=== PATIENT | male | born 1960 | race African-American/Black ===

== ENCOUNTER 2017-04-12 05:28 | Inpatient (IN) ==
[2017-04-07 10:19] LABS: Basophils % 0.6 % (0.0-0.8); Eosinophils # 0.1 10*3/uL (0.0-0.87); Eosinophils % 1.9 % (0.00-10.9); Hematocrit 44.1 VOL% (42.0-52.0); Hemoglobin 14.5 GM/DL (14.0-18.0); Immature Granulocytes % 0.2 %; Immature Granulocytes Absolute 0.01 #; Lymphocytes # 1.6 10*3/uL (1.4-4.0); Lymphocytes % 31.9 % (21.2-54.2); Mean Corpuscular HGB Conc 32.9 GM/DL (32-36); Mean Corpuscular Hemoglobin 27 PG (27-34); Mean Corpuscular Volume 81.2 FL (87-102); Mean Platelet Volume 10.3 FL (9.6-12.0); Monocytes # 0.6 10*3/uL (0.11-0.8); Monocytes % 11.9 % (1.7-12.7); Neutrophils # 2.8 10*3/uL (1.4-7.4); Neutrophils % 53.5 % (38.7-73.9); Platelet Count 256 T/CUMM (130-400); Red Blood Count 5.43 MC/CUMM (3.8-5.5); Red Cell Distribution Width 14.6 % (9.3-17.3); White Blood Count 5.1 T/CUMM (4-12)
--- NOTE | 2017-04-07 10:32 | EKG Report ---
Stationary ECG Study [facility] Test Date: 04/07/2017 10:33:39 AM Pat Name: MAXINE HAWKINS Department: Room: Gender: M Traffic I Manager: JESU 04/12/17 : 1960 Requested by: Heber Cunha Order Number: [id number] Reading MD: BISI PALACIOS Intervals [place] Rate: 60 P: 75 MD: 167 QRS: 12 QRSD: 98 T: 57 QT: 392 QTc: 392 Interpretive Statements SINUS RHYTHM INCOMPLETE RIGHT BUNDLE BRANCH BLOCK Electronically Signed On 04-08-17 15:17:50 CDT by BISI PALACIOS [email or web address]
[2017-04-07 10:37] LABS: PT Patient Result 10.5 SECS
[2017-04-07 10:44] LABS: Partial Thromboplastin Time 42.8 SECS (0-40)
[2017-04-07 10:51] LABS: Calcium 9.3 MG/DL (8.5-10.1); Magnesium 2.2 MG/DL (1.8-2.4); Osmolality,Calculated 275.4 MOS/KG (273-304); Potassium 4.4 MMOL/L (3.5-5.1)
[2017-04-07 10:52] LABS: Apearance,Urine CLEAR (Clear); Bilirubin,Urine Negative (Negative); Blood, Urine Negative (Negative); Glucose,Urine (UA) Negative (Negative); Ketones,Urine Negative (Negative); Mucus,Urine Occasional /LPF (Occasional); Nitrite,Urine Negative (Negative); Protein,Urine Negative; RBC,Urine <1 /HPF (0-4); Urine Color Yellow (Yellow); Urine Specific Gravity 1.012 (1.001-1.035); WBC,Urine <1 /HPF (0-6)
--- NOTE | 2017-04-07 13:30 | XRay Report ---
XR chest 2V Date: 04/07/2017 9:59 AM History: Respiratory preoperative evaluation Comparison: 03/24/2017 Technique: PA and lateral chest Findings: The heart remains normal in size. Stable right apical mass. The finding abuts the pleural surface of the right lung apex with adjacent atelectasis. Stable mediastinum and osseous structures. Impression: Stable right apical mass. No significant change in the appearance of the chest. PROCEDURE INTERPRETED AT [facility] DEPARTMENT OF RADIOLOGY Final Report Signed by: Dr. Eliana Almaraz
[~2017-04-12 05:28] MED LIST: SODIUM CHLORIDE 0.9% 250 ML IV PRN
[2017-04-12] MEDS ORDERED: BUPIVACAINE LIPOSOMAL 20 ML/266 MG VIAL INFILTRAT ONE (06:00)
[2017-04-12] MEDS ORDERED: CEFUROXIME INJ 1,500 MG in SODIUM CHLORIDE 0.9% 100 ML IV ONE (06:00)
[2017-04-12] MEDS ORDERED: ACETAMINOPHEN INJ 1,000 MG in PREMIX 1 EACH IV ONE (06:00)
[2017-04-12] MEDS ORDERED: BUPIVACAINE LIPOSOMAL 20 ML/266 MG VIAL ONE (06:33)
[2017-04-12] MEDS ORDERED: SODIUM CHLORIDE 0.9% 100 ML IV ONE (06:37)
[2017-04-12] MEDS ORDERED: CEFUROXIME 1,500 MG VIAL ONE (06:37)
--- NOTE | 2017-04-12 06:57 | History and Physical Update ---
History and Physical Update - History and Physical H&P was reviewed, the patient examined and there: are no changes in the patients condition since last H&P was completed. - Dictation Physical: refer to scanned H&P
[2017-04-12] MEDS ORDERED: PROPOFOL 200 MG/20 ML VIAL IV ONE (06:58)
[2017-04-12] MEDS ORDERED: NEOSTIGMINE 10 MG/10 ML VIAL ONE (06:58)
[2017-04-12] MEDS ORDERED: PHENYLEPHRINE 50 MG/5 ML VIAL ONE (06:58)
[2017-04-12] MEDS ORDERED: PHENYLEPHRINE 1 MG/10 ML SYRINGE IV ONE (06:58)
[2017-04-12] MEDS ORDERED: LIDOCAINE 2% 5 ML VIAL ONE (06:58)
[2017-04-12] MEDS ORDERED: ROCURONIUM 100 MG/10 ML VIAL IV ONE (06:58)
[2017-04-12] MEDS ORDERED: GLYCOPYRROLATE 0.4 MG/2 ML VIAL ONE (06:58)
[2017-04-12] MEDS ORDERED: ONDANSETRON 4 MG/2 ML VIAL ONE (06:58)
[2017-04-12] MEDS ORDERED: LACTATED RINGERS 1,000 ML IV SCH (07:00)
[2017-04-12 08:31] LABS: Apearance,Urine Slightly Hazy (Clear); Bacteria,Urine Occasional /HPF (Few); Bilirubin,Urine Negative (Negative); Blood, Urine Negative (Negative); Glucose,Urine (UA) Negative (Negative); Ketones,Urine Negative (Negative); Mucus,Urine Many /LPF (Occasional); Nitrite,Urine Negative (Negative); Protein,Urine Negative; RBC,Urine 1 /HPF (0-4); Urine Color Yellow (Yellow); Urine Specific Gravity 1.023 (1.001-1.035); Urine Urobilinogen < 2.0 EU/DL (0.2-1.0); WBC,Urine 2 /HPF (0-6)
[2017-04-12] MEDS ORDERED: TISSUE ADHESIVE 1 EACH APPLICATOR TOP ONE (10:08)
[2017-04-12] MEDS ORDERED: HYDROmorphone 2 MG/1 ML VIAL ONE (10:32)
[2017-04-12] MEDS: HYDROmorphone 2 MG/1 ML VIAL IV PRN ×3 (10:35→14:46)
--- NOTE | 2017-04-12 10:36 | Operative Note ---
Date of procedure: 04/12/17 Pre-op diagnosis: Right upper lobe lung cancer Post-op diagnosis: same Procedure: Procedure: 1. Bronchoscopy 3. Right video-assisted thoracoscopy 4. Injection of liposomal bupivacaine with intercostal nerve blocks levels 2, 3 , 4, 5, 6, 7, 8 5. Right upper lobectomy 6. Complete mediastinal lymph node dissection Details of the procedure: The patient was brought to the OR placed supine on the OR table and general endotracheal anesthesia was induced without without any problems. Antibiotics were given. Time out was performed The neck and chest were prepped and draped in the usual sterile fashion. At this point I decided to proceed with right video-assisted thoracoscopy to do the right upper lobectomy and mediastinal lymph node. The patient was turned and the chest was prepared and draped in sterile fashion. An incision was made over the eighth rib and space was entered bluntly. Survey of the chest didn't show any obvious lesions other than the right upper lobe. The inferior pulmonary ligament was taken down and dissected the hilum all around the lung. The right superior pulmonary vein was identified and encircled with silk stitch. Was created and I used a white load stapler to resect the pulmonary vein. Care was taken to preserve the right middle lobe vein and the right lower lobe vein. After that we proceeded with identifying the truncu anterior artery. Dissection was carried around the artery. Of note there was severely adhesed large and solid lymph nodes likely related to lymphoma After circling the artery successfully I dissected it using white load. I after that identified the interlobar artery and finished the fissure using Pribble Carly annie. This was carried all the way down. After that the bronchus was identified and it was transected using load stapler. The lobe was then handed over after complete resection and then turned my attention to completion of lymph node dissection. Identified level VII lymph node as well as level IV lymph nodes. There was collected and the would be sent for permanent pathology. The patient tolerated the procedure well hemostasis was achieved and 2 chest tubes were inserted without any problems. The right middle and lower lobes were inflated successfully without any problems. I recommended a leak. The patient was extubated and moved to PACU in good condition. Anesthesia: GETA Surgeon / Physician: Heber Cunha Estimated blood loss: other (200) Specimens: other (Right upper lobe, level 11, level 9, level 4R lymph nodes) Condition: stable Disposition: PACU Results - Labs CBC & BMP: 04/07/17 10:03 04/07/17 10:10 Discharge Plan - Discharge Medications No Action Aspirin EC Tab 81 mg PO DAILY - Follow Up or Referral - Forms/Instructions
[2017-04-12] MEDS ORDERED: ONDANSETRON 4 MG/2 ML VIAL IV PRN (10:44)
[2017-04-12] MEDS ORDERED: SEVOFLURANE 1 UNIT/15 MINUTE INH ONE (10:45)
[2017-04-12] MEDS ORDERED: MIDAZOLAM 2 MG/2 ML VIAL ONE (10:45)
[2017-04-12] MEDS ORDERED: SODIUM CHLORIDE 0.9% 1,000 ML IV ONE (10:46)
[2017-04-12] MEDS ORDERED: fentaNYL 100 MCG/2 ML VIAL ONE (10:46)
[2017-04-12] MEDS ORDERED: ePHEDrine 50 MG/ML AMP ONE (10:46)
[2017-04-12] MEDS ORDERED: SODIUM CHLORIDE 0.9% 250 ML IV ONE (10:46)
[2017-04-12] MEDS ORDERED: SODIUM CHLORIDE 0.9% 1,000 ML IV SCH (11:00)
--- NOTE | 2017-04-12 11:19 | XRay Report ---
Exam: XR chest 1V portable Date: 04/12/2017 10:24 AM Indication: Postop thoracotomy chest tube Comparison: 04/07/2017 Technical: AP Findings: A right IJ catheter is present. Thoracotomy tube is present in the right apex and one is also located in the medial apex. Surgical clips present in the right hilus. Less than 1% pneumothorax present. ASVD is present. Heart is normal in size. Impression: 1. Interval right-sided thoracotomy with 2 thoracotomy tubes present with a right IJ catheter placed 2. Minimal apical pleural thickening without obvious infiltrates or effusions seen 3. Less than 1% pneumothorax on the right PROCEDURE INTERPRETED AT [facility] DEPARTMENT OF RADIOLOGY Final Report Signed by: Dr. Juaquin Novak
[2017-04-12 11:34] LABS: Basophils % 0.2 % (0.0-0.8); Eosinophils # 0.1 10*3/uL (0.0-0.87); Eosinophils % 0.6 % (0.00-10.9); Hemoglobin 14.3 GM/DL (14.0-18.0); Immature Granulocytes % 0.3 %; Immature Granulocytes Absolute 0.03 #; Lymphocytes # 0.9 10*3/uL (1.4-4.0); Lymphocytes % 10.7 % (21.2-54.2); Mean Corpuscular HGB Conc 32.5 GM/DL (32-36); Mean Corpuscular Hemoglobin 26 PG (27-34); Mean Corpuscular Volume 81.3 FL (87-102); Mean Platelet Volume 10.3 FL (9.6-12.0); Monocytes # 0.4 10*3/uL (0.11-0.8); Monocytes % 4.4 % (1.7-12.7); Neutrophils # 7.4 10*3/uL (1.4-7.4); Neutrophils % 83.8 % (38.7-73.9); Platelet Count 250 T/CUMM (130-400); Red Blood Count 5.41 MC/CUMM (3.8-5.5); Red Cell Distribution Width 14.6 % (9.3-17.3); White Blood Count 8.8 T/CUMM (4-12)
[2017-04-12 12:06] LABS: Calcium 8.2 MG/DL (8.5-10.1); Osmolality,Calculated 281.3 MOS/KG (273-304)
--- NOTE | 2017-04-12 12:34 | Anesthesia Post-Op ---
Anesthesia Post OP - Post Ansesthetic Evaluation Patient seen in post op: Yes Resp: within normal limits CV: within normal limits Mental: within normal limits Temp: within normal limits [id number]: within normal limits Nausea and Vomiting: within normal limits Pain: within normal limits
[2017-04-12] MEDS: KETOROLAC 15 MG/1 ML VIAL IV SCH ×2 (13:45→20:25)
[2017-04-12] MEDS: ONDANSETRON 4 MG/2 ML VIAL IV PRN ×2 (14:55→18:03)
[2017-04-12] MEDS: GABAPENTIN 100 MG CAPSULE PO SCH ×2 (15:07→20:28)
[2017-04-12] MEDS: POTASSIUM CHLORIDE INJ 10 MEQ in SODIUM CHLORIDE 0.45% 1,000 ML IV SCH ×2 (15:08→22:14)
[2017-04-12] MEDS: ACETAMINOPHEN INJ 1,000 MG in PREMIX 1 EACH IV SCH ×2 (17:25→23:15)
[2017-04-12] MEDS ORDERED: METOPROLOL TARTRATE 5 MG/5 ML VIAL IV ONE (17:54)
[2017-04-12] MEDS: CEFUROXIME INJ 1,500 MG in SODIUM CHLORIDE 0.9% 100 ML IV SCH (18:03)
[2017-04-12] MEDS: METOPROLOL TARTRATE 25 MG TABLET PO SCH (20:27)
[2017-04-13] MEDS: KETOROLAC 15 MG/1 ML VIAL IV SCH ×4 (01:03→21:27)
[2017-04-13] MEDS: ACETAMINOPHEN 500 MG TABLET PO SCH ×3 (04:27→16:49)
[2017-04-13] MEDS ORDERED: MORPHINE 10 MG/1 ML VIAL IV ONE (04:50)
[2017-04-13 05:25] LABS: Basophils % 0.1 % (0.0-0.8); Eosinophils % 0.3 % (0.00-10.9); Hematocrit 41.7 VOL% (42.0-52.0); Hemoglobin 13.8 GM/DL (14.0-18.0); Immature Granulocytes % 0.3 %; Immature Granulocytes Absolute 0.02 #; Lymphocytes # 1.4 10*3/uL (1.4-4.0); Lymphocytes % 19.7 % (21.2-54.2); Mean Corpuscular HGB Conc 33.1 GM/DL (32-36); Mean Corpuscular Hemoglobin 27 PG (27-34); Mean Corpuscular Volume 81.3 FL (87-102); Mean Platelet Volume 10.5 FL (9.6-12.0); Monocytes # 0.6 10*3/uL (0.11-0.8); Monocytes % 7.9 % (1.7-12.7); Neutrophils # 5.1 10*3/uL (1.4-7.4); Neutrophils % 71.7 % (38.7-73.9); Platelet Count 245 T/CUMM (130-400); Red Blood Count 5.13 MC/CUMM (3.8-5.5); Red Cell Distribution Width 14.7 % (9.3-17.3); White Blood Count 7.1 T/CUMM (4-12)
[2017-04-13 06:13] LABS: Calcium 8.5 MG/DL (8.5-10.1); Osmolality,Calculated 276.4 MOS/KG (273-304); Potassium 4.3 MMOL/L (3.5-5.1)
[2017-04-13] MEDS: CEFUROXIME INJ 1,500 MG in SODIUM CHLORIDE 0.9% 100 ML IV SCH (06:53)
--- NOTE | 2017-04-13 07:08 | XRay Report ---
Exam: XR chest 2V Date: 04/13/2017 4:00 AM Indication: Right upper lobe lobectomy Comparison: 04/12/2017 Technical: PA lateral Findings: 2 thoracotomy tubes are present direct towards apex and one in the medial upper chest. Mild prominence the cardiac silhouette. External cardiac leads are present. A right IJ catheter is in the right atrium superior vena cava junction. Component of air-fluid level is present in the right apex with small less than 5% apical pneumothorax Impression: 1. Stable position of the thoracotomy tubes and right IJ catheter 2. Small right apical pneumothorax less than 5% with small amount of fluid also present. PROCEDURE INTERPRETED AT [facility] DEPARTMENT OF RADIOLOGY Final Report Signed by: Dr. Juaquin Novak
--- NOTE | 2017-04-13 07:34 | Cardiothoracic Progress Note ---
Assessment and Plan - Time spent with patient Time spent with patient: Greater than 30 minutes (1) Lesion of right lung Problem details: PET +ve, suspicious for malignancy Status: Acute Assessment and plan: 56-year-old male one day status post VATS right upper lobectomy with mediastinal lymph node dissection for right upper lobe lung cancer. The patient did very well overnight. He is afebrile and vital signs are stable. DC A-line. Ambulate. Transfer to telemetry. Advance diet. Will put the chest tube to waterseal today. Current Visit: No Exam (Progress Note) - Constitutional Vitals: Period Temp Pulse Resp BP Sys/Joe Pulse Ox Last 24 Hr 96.8 F-98.2 F 66-97 6-21 110-181/56-95 95-100 Result/EKG - Labs CBC & BMP: 04/13/17 04:35 04/13/17 04:33 Labs: Laboratory Results - last 24 hr 04/12/17 04/12/17 04/12/17 06:29 08:21 11:10 WBC 8.8 RBC 5.41 Hgb 14.3 Hct 44.0 MCV 81.3 L MCH 26 L MCHC 32.5 RDW 14.6 Plt Count 250 MPV 10.3 Neut % (Auto) 83.8 H Lymph % (Auto) 10.7 L [place] % (Auto) 4.4 Eos % (Auto) 0.6 Baso % (Auto) 0.2 Neut # (Auto) 7.4 Lymph # (Auto) 0.9 L [place] # (Auto) 0.4 Eos # (Auto) 0.1 Baso # (Auto) 0.0 Immature Gran % 0.3 Nucleated RBC % 0.0 Immature Gran # 0.03 Nucleated RBCs # 0.00 Immature Plt Fraction 0.0 Sodium Potassium Chloride Carbon Dioxide Anion Gap BUN Creatinine GFR Calculation BUN/Creatinine Ratio Glucose Calculated Osmolality Calcium Urine Color Yellow Urine Appearance Slightly hazy Urine pH 5.0 Ur Specific [place] 1.023 Urine Protein Negative Urine Glucose (UA) Negative Urine Ketones Negative Urine Blood Negative Urine Nitrate Negative Urine Bilirubin Negative Urine Urobilinogen < 2.0 H Urine Leukocytes Negative Urine RBC 1 Urine WBC 2 Urine Bacteria Occasional Urine Mucus Many Ur Culture Indicated? Not indicated Crossmatch See Detail 04/12/17 04/13/17 04/13/17 11:10 04:33 04:35 WBC 7.1 RBC 5.13 Hgb 13.8 L Hct 41.7 L MCV 81.3 L MCH 27 MCHC 33.1 RDW 14.7 Plt Count 245 MPV 10.5 Neut % (Auto) 71.7 Lymph % (Auto) 19.7 L [place] % (Auto) 7.9 Eos % (Auto) 0.3 Baso % (Auto) 0.1 Neut # (Auto) 5.1 Lymph # (Auto) 1.4 [place] # (Auto) 0.6 Eos # (Auto) 0.0 Baso # (Auto) 0.0 Immature Gran % 0.3 Nucleated RBC % 0.0 Immature Gran # 0.02 Nucleated RBCs # 0.00 Immature Plt Fraction 0.0 Sodium 141 140 Potassium 4.0 4.3 Chloride 108 H 104 Carbon Dioxide 27 30 Anion Gap 10.0 10.3 BUN 11 7 Creatinine 0.80 0.70 GFR Calculation 118 125 BUN/Creatinine Ratio 13.00 10.00 Glucose 142 H 95 Calculated Osmolality 281.3 276.4 Calcium 8.2 L 8.5 Urine Color Urine Appearance Urine pH Ur Specific [place] Urine Protein Urine Glucose (UA) Urine Ketones Urine Blood Urine Nitrate Urine Bilirubin Urine Urobilinogen Urine Leukocytes Urine RBC Urine WBC Urine Bacteria Urine Mucus Ur Culture Indicated? Crossmatch Quality Measures - VTE Contraindication to Pharmacological VTE Prophylaxis: Active Bleeding
[2017-04-13] MEDS: GABAPENTIN 100 MG CAPSULE PO SCH ×3 (08:45→21:29)
[2017-04-13] MEDS: POTASSIUM CHLORIDE INJ 10 MEQ in SODIUM CHLORIDE 0.45% 1,000 ML IV SCH (08:45)
[2017-04-13] MEDS: METOPROLOL TARTRATE 25 MG TABLET PO SCH ×2 (08:46→21:28)
[2017-04-13] MEDS: PANTOPRAZOLE 40 MG VIAL IV SCH (08:48)
[2017-04-13] MEDS ORDERED: traMADol 50 MG TABLET PO PRN (10:24)
--- NOTE | 2017-04-13 18:17 | Pathology Report from [facility] ---
[facility] # : [id number] PATIENT NAME : Palmer Hawkins ORDERING DR : Heber Cunha MD CLINICAL HX: Pulmonary nodule - Pulmonary cancer POST-OP DX: Same SPECIMEN INFO: #1 Lymph node 9R #2 Lymph node 11R #3 Lymph node 4R #4 Right upper lobe GROSS DESCRIPTION: #1 LYMPH NODE 9R, PALMER HAWKINS received fresh is a 0.5 x 0.4 cm mccallum-black lymph node submitted in cassette #1.#2 LYMPH NODE 11R, PALMER HAWKINS received fresh is 1.3 x 0.8 cm of mccallum-black tissue submitted in cassette #2.#3 LYMPH NODE 4R, PALMER HAWKINS received fresh is a 1.2 x 0.8 cm aggregate of red-santos tissue submitted in #3.#4 R UPPER LOBE, PALMER HAWKINS received in formalin is a 14.5 x 8.0 x 3.0 cm right upper lung lobe. The serosa is maroon- pink with anthracotic change. Multiple anthracotic nodes are present at the hilum. Sectioning reveals a 2.8 x 2.8 cm tumor mass in the lung which grossly extends to the pleural surface and comes to within 5.5 cm of the bronchial margin. Parenchyma is spongy to hemorrhagic. No other masses. 4A bronchial and vascular margins, 4B lymph nodes, 4C and 4D tumor, and pleural surface. DIAGNOSIS FOR PALMER HAWKINS: #1-#4 LUNG, RIGHT UPPER LOBE, LOBECTOMY (Intact, 14.5 x 8.0 x 3.0 cm) W/ MEDIASTINAL NODES: TUMOR TYPE: Non mucinous adenocarcinoma. HISTOLOGIC GRADE: Poorly Differentiated. TUMOR SIZE: 2.8 x 2.8 cm. TUMOR SITE: RUL. MARGINS: All margins uninvolved with carcinoma with nearest (bronchial) margin = 55 mm. FOCALITY: Unifocal. VISCERAL PLEURAL INVASION: Present (PL2). LYMPHOVASCULAR INVASION: Not present. TUMOR ASSOCIATED ATELECTASIS OR OBSTRUCTIVE PNEUMONITIS: Not present. DIRECT INVASION OF ADJACENT STRUCTURES: No adjacent structures present. TREATMENT EFFECT: No known presurgical therapy. LYMPH NODES: Number examined = 5 (#1 9R , #2 11R, #4 12R x3); Number positive = 0 (0/5). ADDITIONAL FINDINGS: #3 4R = No lymph node present. AJCC (2018) PATHOLOGIC STAGE IB (pT2a(PL2) pN0) COLLECTED DATE: 04/12/2017 [facility] REPORT DATE: 04/13/2017 ELECTRONICALLY SIGNED BY: Luis Beltre M.D. 04/13/2017 - 11:54:11 [facility]TDD
[2017-04-13] MEDS: CELECOXIB 200 MG CAPSULE PO SCH (21:28)
[2017-04-14] MEDS: KETOROLAC 15 MG/1 ML VIAL IV SCH ×2 (03:48→08:46)
[2017-04-14] MEDS: ACETAMINOPHEN 500 MG TABLET PO SCH ×5 (03:48→21:34)
[2017-04-14 05:47] LABS: Basophils % 0.2 % (0.0-0.8); Eosinophils # 0.1 10*3/uL (0.0-0.87); Eosinophils % 1.1 % (0.00-10.9); Hematocrit 40.4 VOL% (42.0-52.0); Hemoglobin 13.1 GM/DL (14.0-18.0); Immature Granulocytes % 0.4 %; Immature Granulocytes Absolute 0.03 #; Lymphocytes % 11.6 % (21.2-54.2); Mean Corpuscular HGB Conc 32.4 GM/DL (32-36); Mean Corpuscular Hemoglobin 27 PG (27-34); Mean Corpuscular Volume 81.9 FL (87-102); Mean Platelet Volume 10.4 FL (9.6-12.0); Monocytes # 0.5 10*3/uL (0.11-0.8); Monocytes % 6.1 % (1.7-12.7); Neutrophils # 6.6 10*3/uL (1.4-7.4); Neutrophils % 80.6 % (38.7-73.9); Platelet Count 218 T/CUMM (130-400); Red Blood Count 4.93 MC/CUMM (3.8-5.5); Red Cell Distribution Width 14.7 % (9.3-17.3); White Blood Count 8.2 T/CUMM (4-12)
[2017-04-14 06:17] LABS: Calcium 8.6 MG/DL (8.5-10.1); Osmolality,Calculated 280.3 MOS/KG (273-304); Potassium 4.2 MMOL/L (3.5-5.1)
[2017-04-14] MEDS: CELECOXIB 200 MG CAPSULE PO SCH ×2 (08:48→21:34)
[2017-04-14] MEDS: GABAPENTIN 100 MG CAPSULE PO SCH ×3 (08:48→21:35)
[2017-04-14] MEDS: PANTOPRAZOLE 40 MG VIAL IV SCH (08:48)
--- NOTE | 2017-04-14 08:48 | XRay Report ---
Portable chest April 14, 2017 at 0727 hours Indication: Right upper lobectomy, difficulty breathing Comparison images from previous day at 0542 hours Findings: Tubes and lines are unchanged. Right lung remains expanded along the chest wall. Osseous structures are unremarkable. Cardiomediastinal contours are stable. Impression: Uncomplicated postoperative chest PROCEDURE INTERPRETED AT [facility] DEPARTMENT OF RADIOLOGY Final Report Signed by: Farzad Del Angel
[2017-04-14] MEDS: METOPROLOL TARTRATE 25 MG TABLET PO SCH ×2 (08:49→21:35)
--- NOTE | 2017-04-14 10:36 | Cardiothoracic Progress Note ---
Assessment and Plan (1) Lesion of right lung Problem details: PET +ve, suspicious for malignancy Status: Acute Assessment and plan: 56-year-old male 2 days status post VATS right upper lobectomy with mediastinal lymph node dissection for right upper lobe lung cancer. The patient did very well overnight. He is afebrile and vital signs are stable. Ambulate. Will put the chest tube to waterseal today. Likely discharge tomorrow. Current Visit: No Exam (Progress Note) - Constitutional Vitals: Period Temp Pulse Resp BP Sys/Joe Pulse Ox Last 24 Hr 97.4 F-98.5 F 69-85 18-20 135-150/70-81 94-100 Result/EKG - Labs CBC & BMP: 04/14/17 05:12 04/14/17 05:12 Labs: Laboratory Results - last 24 hr 04/14/17 04/14/17 05:12 05:12 WBC 8.2 RBC 4.93 Hgb 13.1 L Hct 40.4 L MCV 81.9 L MCH 27 MCHC 32.4 RDW 14.7 Plt Count 218 MPV 10.4 Neut % (Auto) 80.6 H Lymph % (Auto) 11.6 L [place] % (Auto) 6.1 Eos % (Auto) 1.1 Baso % (Auto) 0.2 Neut # (Auto) 6.6 Lymph # (Auto) 1.0 L [place] # (Auto) 0.5 Eos # (Auto) 0.1 Baso # (Auto) 0.0 Immature Gran % 0.4 Nucleated RBC % 0.0 Immature Gran # 0.03 Nucleated RBCs # 0.00 Immature Plt Fraction 0.0 Sodium 141 Potassium 4.2 Chloride 106 Carbon Dioxide 33 H Anion Gap 6.2 BUN 9 Creatinine 0.90 GFR Calculation 112 BUN/Creatinine Ratio 10.00 Glucose 116 H Calculated Osmolality 280.3 Calcium 8.6 Quality Measures - VTE Contraindication to Pharmacological VTE Prophylaxis: Active Bleeding
[2017-04-15] MEDS: ACETAMINOPHEN 500 MG TABLET PO SCH ×2 (04:44→10:12)
[2017-04-15 05:42] LABS: Basophils % 0.4 % (0.0-0.8); Eosinophils # 0.1 10*3/uL (0.0-0.87); Eosinophils % 2.3 % (0.00-10.9); Hematocrit 39.8 VOL% (42.0-52.0); Immature Granulocytes % 0.4 %; Immature Granulocytes Absolute 0.02 #; Lymphocytes # 1.1 10*3/uL (1.4-4.0); Lymphocytes % 18.5 % (21.2-54.2); Mean Corpuscular HGB Conc 32.7 GM/DL (32-36); Mean Corpuscular Hemoglobin 27 PG (27-34); Mean Corpuscular Volume 81.1 FL (87-102); Mean Platelet Volume 10.8 FL (9.6-12.0); Monocytes # 0.5 10*3/uL (0.11-0.8); Neutrophils # 3.9 10*3/uL (1.4-7.4); Neutrophils % 69.4 % (38.7-73.9); Platelet Count 232 T/CUMM (130-400); Red Blood Count 4.91 MC/CUMM (3.8-5.5); Red Cell Distribution Width 14.6 % (9.3-17.3); White Blood Count 5.7 T/CUMM (4-12)
[2017-04-15 06:13] LABS: Osmolality,Calculated 281.1 MOS/KG (273-304); Potassium 4.1 MMOL/L (3.5-5.1)
--- NOTE | 2017-04-15 07:59 | XRay Report ---
2 view chest 04/15/2017 4:00 AM Indication: Shortness of breath postop right upper lobectomy Comparison: Previous day at 0727 hours Findings: Cardiomediastinal contours are stable. Tubes and lines are unchanged and remain in satisfactory position. No significant change in appearance of the small right apical pneumothorax from previous study. No acute osseous abnormalities. Visualized upper abdomen demonstrates no acute pathology. Impression: Stable postoperative chest with no change in the small right apical pneumothorax PROCEDURE INTERPRETED AT [facility] DEPARTMENT OF RADIOLOGY Final Report Signed by: Farzad Del Angel
[2017-04-15] MEDS: CELECOXIB 200 MG CAPSULE PO SCH (08:59)
[2017-04-15] MEDS: METOPROLOL TARTRATE 25 MG TABLET PO SCH (08:59)
[2017-04-15] MEDS: GABAPENTIN 100 MG CAPSULE PO SCH (08:59)
[2017-04-15] MEDS: PANTOPRAZOLE 40 MG VIAL IV SCH (09:00)
--- NOTE | 2017-04-15 09:32 | Discharge Summary ---
Hospital Course - Hospital Course Hospital Course: The patient came into the preop area was evaluated and was not to be fit for surgery. The patient was then taken to the OR on the right VATS upper lobectomy and mediastinal lymph node dissection was performed without any problems. The patient was admitted to the ICU for observation. He did very well. Pain was well-controlled. He had no air leak. Postoperative day 1 he was transferred to telemetry. He is ambulating well. He was having bowel movements. Postoperative day 2 chest tubes were put to waterseal. There was no air leak. Postoperative day 3 chest tubes were removed. The patient was tolerating his diet. He was doing very well. He was ready for discharge. Diagnosis - Discharge Diagnosis (1) Lesion of right lung Status: Acute Discharge Plan - Discharge Data Disposition: Disch To Home/Self Care Condition at Discharge: Stable Discharge Diet: advance to your usual diet Activity: resume usual activities as tolerated Weight Bearing at Discharge: full weight bearing, weight bear as tolerated Contact your physician if you experience:: fever over 101, Difficulty voiding, Redness or swelling, Nausea/Vomiting, Shortness of breath - Discharge Medications [place] Cap/Tab [Neurontin Cap/Tab] 100 mg PO TID #60 capsule Acetaminophen Tab [Tylenol Tab] 1,000 mg PO Q6H #60 tablet Celecoxib [Celebrex] 200 mg PO BID #60 capsule Metoprolol Tartrate Tab [Lopressor Tab] 12.5 mg PO BID #30 tablet traMADol TAB [Ultram] 50 mg PO Q6H PRN #60 tablet PRN Reason: Pain Mild (1-3) Continue Aspirin EC Tab 81 mg PO DAILY - Follow Up or Referral - Forms/Instructions Exam - Constitutional Vitals: Period Temp Pulse Resp BP Sys/Joe Pulse Ox Last 24 Hr 97.0 F-98.4 F 68-96 16-20 138-187/83-97 95-100 Discharge Results Procedures and tests throughout hospitalization: Pending Orders 04/12/17 06:29 Fresh Frozen Plasma Routine Single Donor Platelets Routine Type and Screen Routine Labs on day of discharge: Labs from last 24 hours 04/15/17 04/15/17 04:36 04:36 WBC 5.7 D RBC 4.91 Hgb 13.0 L Hct 39.8 L MCV 81.1 L MCH 27 MCHC 32.7 RDW 14.6 Plt Count 232 MPV 10.8 Neut % (Auto) 69.4 Lymph % (Auto) 18.5 L [place] % (Auto) 9.0 Eos % (Auto) 2.3 Baso % (Auto) 0.4 Neut # (Auto) 3.9 Lymph # (Auto) 1.1 L [place] # (Auto) 0.5 Eos # (Auto) 0.1 Baso # (Auto) 0.0 Immature Gran % 0.4 Nucleated RBC % 0.0 Immature Gran # 0.02 Nucleated RBCs # 0.00 Immature Plt Fraction 0.0 Sodium 142 Potassium 4.1 Chloride 106 Carbon Dioxide 31 Anion Gap 9.1 BUN 10 Creatinine 0.70 GFR Calculation 124 BUN/Creatinine Ratio 14.00 Glucose 92 Calculated Osmolality 281.1 Calcium 9.0 DS: Provider Date of admission: 04/12/17 05:28 Primary care physician: . No PCP Attending physician on admission: Heber Cunha Discharging clinician: Heber Cunha Expected date of discharge: 04/15/17
[2017-04-15 12:05] VITALS: BP 163/90
[2017-04-15] MEDS ORDERED: PNEUMOCOCCAL VACCINE (23 VALENT) 0.5 ML VIAL IM ONE (12:30)
--- NOTE | 2017-04-15 12:47 | XRay Report ---
Exam: XR chest 2V Date: 04/15/2017 11:30 AM Indication: Shortness of breath removal of thoracotomy tube Comparison: 04/15/2017 7:23 AM Technical:PA lateral Findings: Right IJ catheter is present with the distal tip in the superior vena cava the 2 thoracotomy tubes have been removed.. Mild interstitial thickening present in the perihilar regions with a surgical clip present on the right. No obvious pneumothorax clearly demonstrated. The exam reveals external cardiac leads present. Impression: 1. Interval removal of the 2 right-sided thoracotomy tubes with no obvious pneumothorax 2. Stable position right IJ catheter 3. Status post surgical changes in some interstitial thickening and scarring in the perihilar regions PROCEDURE INTERPRETED AT [facility] DEPARTMENT OF RADIOLOGY Final Report Signed by: Dr. Juaquin Novak
[2017-04-15] MEDS ORDERED: INFLUENZA VIRUS VACCINE 0.5 ML SYRINGE IM ONE (13:00)
== END 2017-04-15 14:20 | disposition home or self-care (01) | DRG 165 ==
LOC: N.SDSINP 05:28 → N.ICU 12:47 → N.TELES 04-13 10:50
PROVIDERS: ADMIT Thoracic Surgery (Cardiothoracic Vascular Surgery); ATTEND Thoracic Surgery (Cardiothoracic Vascular Surgery)